=== PATIENT | female | born 1965 | race Hispanic/Latino ===

== ENCOUNTER 2016-05-28 22:47 | Inpatient (IN) | payer MEDICAID ==
--- NOTE | 2016-05-28 23:28 | Emergency Department Report ---
Chief Complaint: Chest Pain Stated Complaint: CHEST PAIN Time Seen by Provider: 05/28/16 23:23 - HPI History of Present Illness: Patient states she started to feel palpitations 1 hour ago and then started to have some left chest tightness and it lasted for a few minutes and resolved; denies SOB, fevers and cough; took an 81mg ASA before she came here - ROS Review of Systems: Negative except for those states in HPI - Exam Vital Signs: Vital Signs 05/28/16 22:57 Temperature 98.1 F Pulse Rate 104 H Respiratory 18 Rate Blood Pressure 124/88 O2 Sat by Pulse 95 Oximetry Physical Exam: Heart - RRR Lungs - Mild bilateral wheezes present MSE screening note: Focused history and physical exam performed. Due to findings the following was ordered: Labs, EKG, CXR, patient to be seen in Main ED ED Disposition for MSE Condition: Stable
[2016-05-28] MEDS ORDERED: PROVENTIL IH ONE (23:30)
[2016-05-28] MEDS ORDERED: ATROVENT IH ONE (23:30)
[2016-05-29 00:18] LABS: Eosinophils % (Auto) 0.5 % (0.0-4.3); Hematocrit 40.5 % (30.3-42.9); Hemoglobin 13.7 gm/dl (10.1-14.3); Mean Corpuscular HGB Conc 34 % (30-34); Mean Corpuscular Hemoglobin 30 pg (28-32); Mean Corpuscular Volume 89 fl (79-97); Platelet Count 311 K/mm3 (140-440); Red Blood Count 4.53 M/mm3 (3.65-5.03); White Blood Count 11.7 K/mm3 (4.5-11.0)
[2016-05-29 00:36] LABS: Blood Urea Nitrogen 14 mg/dL (7-17); Calcium 9.5 mg/dL (8.4-10.2); Carbon Dioxide 25 mmol/L (22-30); Chloride 99.2 mmol/L (98-107); Glucose 137 mg/dL (65-100); Potassium 3.5 mmol/L (3.6-5.0); Sodium 141 mmol/L (137-145)
[2016-05-29 00:39] LABS: Anion Gap 20 mmol/L
[2016-05-29] MEDS ORDERED: ATROVENT IH ONE (03:38)
[2016-05-29] MEDS ORDERED: PROVENTIL IH ONE (03:38)
--- NOTE | 2016-05-29 07:18 | XRay Report ---
ROUTINE CHEST, TWO VIEWS: HISTORY: chest pain. The trachea, heart, mediastinal contour, lung childs and bony thorax are unremarkable. IMPRESSION: Unremarkable chest x-ray.
[2016-05-29] MEDS ORDERED: ZOFRAN IV ONE (10:27)
[2016-05-29] MEDS ORDERED: ASPIRIN PO ONE (10:27)
[2016-05-29] MEDS ORDERED: NITRO-BID 2% TP ONE (10:27)
[2016-05-29] MEDS ORDERED: MORPHINE IV ONE (10:27)
--- NOTE | 2016-05-29 10:33 | Emergency Department Report ---
HPI - General Chief Complaint: Chest Pain Time Seen by Provider: 05/29/16 10:20 - HPI HPI: Pat 26 The patient is a 50-year-old female presenting with a chief complaint of chest pain. The patient states last night at approximately 20:00 she developed L dictations then soreness in the left chest. Patient states the soreness is changed to a tightness and is currently a 4-5/10. The patient denies shortness of breath, nausea/vomiting or diaphoresis with the chest tightness. The patient states she was diagnosed with coronary artery disease but she has never received a cardiac catheterization or stress test. The patient's father from coronary artery disease Location: Left chest Duration: [see above] Quality: Tightness Severity: 4-5/10 Modifying factors: [see above] Context: [see above] Mode of transportation: [not driving] ED Past Medical Hx - Past Medical History Previous Medical History?: Yes Hx Hypertension: Yes Hx Psychiatric Treatment: Yes (depression PTSD anxiety) Additional medical history: CAD - Surgical History Past Surgical History?: Yes Additional Surgical History: hyster - Family History Family history: CAD/VT - Social History Smoking Status: Current Every Day Smoker (1/2.5 pack per day) Substance Use Type: None (denies illicit drug) ED Review of Systems ROS: Stated complaint: CHEST PAIN Other details as noted in HPI Comment: All other systems reviewed and negative Constitutional: denies: chills, fever Eyes: denies: eye pain, eye discharge, vision change ENT: denies: ear pain, throat pain Respiratory: denies: cough, shortness of breath, wheezing Cardiovascular: chest pain, palpitations Endocrine: no symptoms reported Gastrointestinal: as per HPI Genitourinary: denies: urgency, dysuria, discharge Musculoskeletal: denies: back pain, joint swelling, arthralgia Skin: denies: rash, lesions Neurological: denies: headache, weakness, paresthesias Psychiatric: denies: anxiety, depression Hematological/Lymphatic: denies: easy bleeding, easy bruising Physical Exam - Physical Exam Vital Signs: Vital Signs 05/28/16 05/29/16 05/29/16 22:57 03:47 04:27 Temperature 98.1 F Pulse Rate 104 H Pulse Rate [ 72 75 Throughout] Respiratory 18 Rate Respiratory 20 20 Rate [ Throughout] Blood Pressure 124/88 O2 Sat by Pulse 95 Oximetry Physical Exam: GENERAL: The patient is well-developed well-nourished female lying on stretcher not appearing to be in acute distress. [] HEENT: Normocephalic. Atraumatic. Extraocular motions are intact. Patient has moist mucous membranes. NECK: Supple. Trachea midline CHEST/LUNGS: Clear to auscultation. There is no respiratory distress noted. HEART/CARDIOVASCULAR: Regular. There is no tachycardia. There is no gallop rub or murmur. ABDOMEN: Abdomen is soft, nontender. Patient has normal bowel sounds. There is no abdominal distention. SKIN: There is no rash. There is no edema. There is no diaphoresis. NEURO: The patient is awake, alert, and oriented. The patient is cooperative. The patient has normal speech MUSCULOSKELETAL: There is no evidence of acute injury. ED Course Vital Signs 05/28/16 05/29/16 05/29/16 22:57 03:47 04:27 Temperature 98.1 F Pulse Rate 104 H Pulse Rate [ 72 75 Throughout] Respiratory 18 Rate Respiratory 20 20 Rate [ Throughout] Blood Pressure 124/88 O2 Sat by Pulse 95 Oximetry ED Medical Decision Making - Lab Data Result diagrams: 05/29/16 00:04 05/29/16 00:04 Laboratory Tests 05/29/16 05/29/16 05/29/16 00:04 00:04 02:24 WBC 11.7 H RBC 4.53 Hgb 13.7 Hct 40.5 MCV 89 MCH 30 MCHC 34 RDW 13.0 L Plt Count 311 Lymph % (Auto) 30.0 [place] % (Auto) 7.3 Eos % (Auto) 0.5 Baso % (Auto) 1.0 Lymph # 3.5 [place] # 0.9 H Eos # 0.1 Baso # 0.1 Seg Neutrophils % 61.2 Seg Neutrophils # 7.1 Sodium 141 Potassium 3.5 L Chloride 99.2 Carbon Dioxide 25 Anion Gap 20 BUN 14 Creatinine 0.7 Estimated GFR > 60 BUN/Creatinine Ratio 20.00 Glucose 137 H Calcium 9.5 Troponin T < 0.010 < 0.010 05/29/16 06:50 WBC RBC Hgb Hct MCV MCH MCHC RDW Plt Count Lymph % (Auto) [place] % (Auto) Eos % (Auto) Baso % (Auto) Lymph # [place] # Eos # Baso # Seg Neutrophils % Seg Neutrophils # Sodium Potassium Chloride Carbon Dioxide Anion Gap BUN Creatinine Estimated GFR BUN/Creatinine Ratio Glucose Calcium Troponin T < 0.010 - EKG Data -: EKG Interpreted by Me EKG shows normal: sinus rhythm Rate: normal - EKG Data When compared to previous EKG there are: previous EKG unavailable Interpretation: other (no ischemic changes seen) - Radiology Data Radiology results: image reviewed (chest x-ray) interpreted by me: Chest x-ray-no focal infiltrates, no pneumothorax - Differential Diagnosis ACS, GERD, pericarditis Critical care attestation.: If time is entered above; I have spent that time in minutes in the direct care of this critically ill patient, excluding procedure time. ED Disposition Clinical Impression: Chest pain Disposition: OP ADMITTED IP TO THIS HOSP Is pt being admited?: Yes Does the pt Need Aspirin: Yes Condition: Fair Instructions: Chest Pain (ED) Time of Disposition: 10:35 (hospitalist notified)
[2016-05-29] MEDS ORDERED: MORPHINE IV PRN (10:39)
[2016-05-29] MEDS ORDERED: NITROSTAT SL PRN (10:39)
[2016-05-29] MEDS ORDERED: SODIUM CHLORIDE FLUSH SYRINGE 10 ML IV PRN (10:39)
[2016-05-29] MEDS ORDERED: DULCOLAX PR PRN (10:40)
[2016-05-29] MEDS ORDERED: MILK OF MAGNESIA PO PRN (10:40)
[2016-05-29] MEDS ORDERED: ZOFRAN IV PRN (10:40)
[2016-05-29] MEDS ORDERED: TYLENOL PO PRN (10:40)
--- NOTE | 2016-05-29 10:55 | Admit Criteria Form ---
Admission Criteria Documentation: CHEST PAIN Clinical Indications for Admission to Inpatient Care (Place 'X' for any and all applicable criteria): Admission is indicated for chest pain and ANY ONE of the following(1)(2)(3)(4)(5 ): [ ]I. Angina with acute coronary syndrome (Also use Myocardial Infarction or Angina guideline) [ ]II. Hemodynamic instability [X]III. Angina needing acute intervention as indicated by ALL of the following( 11)(12): [X]a) Unstable angina is present as indicated by angina that is ANY ONE of the following: [ ]i) New onset [X]ii) Nocturnal [ ]iii) Prolonged at rest [ ]iv) Progressive []b) Angina warrants acute intervention as indicated by ANY ONE of the following: [ ]i) Recurrent angina (e.g, not responding as previously to treatment) [ ]ii) Angina at rest or with low-level activities despite initial medical therapy [ ]iii) New or presumably new ST-segment depression on ECG [ ]iv) Signs or symptoms of heart failure (eg, dyspnea, pulmonary edema) [ ]v) New or worsening mitral regurgitation [ ]vi) Hemodynamic instability [ ]vii) Dangerous arrhythmia (eg, sustained ventricular tachycardia) [ ]viii) History of percutaneous coronary intervention within 6 months [ ]ix) History of coronary artery bypass graft surgery [ ]x) ANITRA risk score of 2 or greater[A] [ ]xi) History of Diabetes(14) [ ]xii) High-risk cardiac ischemia findings on noninvasive testing (e.g, echocardiogram, treadmill testing, nuclear scan) [ ]xiii) Chronic renal insufficiency (ie, estimated GFR less than 60 mL/min/1.732m) [ ]xiv) Left ventricular ejection fraction less than 40% [ ]IV. Evidence of NV (eg, cardiac biomarkers positive, ST-segment elevation on ECG) also use Myocardial Infarction Criteria Form. [ ]V. Pulmonary edema [ ]. Respiratory distress [ ]VII. Chest pain indicative of serious diagnosis other than coronary artery disease (eg, aortic dissection) [ ]VIII. Contraindications and/or Inappropriate clinical situations for Observational Care in patients with Chest Pain, when ANY ONE of the following is required: [ ]a) Patient with risk factor for pulmonary embolism, acute coronary syndrome and myocardial infarction (18) [ ]b) Patient with Pulmonary embolism require an average LOS of 4.3 days, therefore emergency department observation management is inappropriate 18,23 [ ]c) Painful condition/s in the elderly, have the highest rate of recidivism after emergency department observation management (10.8%) 20,21,22 [ ]d) Elevated cardiac biomarker requires intensive and exhaustive care (19) [ ]IX. General contraindications and/or Inappropriate clinical situations for Observational Care in patients with Chest Pain, when ANY ONE of the following is required: [ ]a) Prediction of prolongation of LOS based on ANY ONE of the following may be considered as a contraindication for observational care 2, 3, 4, 5, 6, 7, 8, 9, 10, 11 [ ]i) Age > 65 yrs. [ ]ii) Patient arriving by ambulance [ ]iii) Patient with high acuity [ ]iv) Patient requiring vital sign monitoring [ ]v) Patient on IV medication [ ]b) Systolic blood pressures 180mmHg 3,12 [ ]c) Patient with altered mental status including delirium and other alteration of consciousness, (3) [ ]d) Patient whose discharge disposition will be to a custodial home or rehabilitation home should not be managed in Emergency Department Observation Unit. CMS rule requires 3 days hospital stay before such placement. 3,13 [ ]e) Patient with failure to thrive due to broad array of etiologies 3,16,17 [ ]f) Inability to ambulate 3,14 Extended stay beyond goal length of stay may be needed for (1)(28): [ ]a) Specific condition diagnosed after evaluation (eg, pulmonary embolism, aortic dissection) [ ]b) Unstable angina [ ]c) Continued suspicion of acute coronary syndrome with inability to complete needed cardiac evaluation (eg, patient clinically unable to undergo stress testing) [ ]d) Myocardial infarction (Contents from ANGINA and CHEST PAIN clinical indications for admission to inpatient care have been integrated in this form) The original [facility] content created by [employer] has been revised. The portions of the content which have been revised are identified through the use of italic text or in bold, and [facility] [employer] has neither reviewed nor approved the modified material. All other unmodified content is copyright [facility]. Please see references footnoted in the original [facility] edition 2016 Admission Criteria Met: Yes
[2016-05-29] MEDS ORDERED: LEXISCAN IV ONE ×2 (11:49→11:52)
[2016-05-29 11:52] LABS: Creatine Kinase 137 units/L (30-135); Creatine Kinase MB 3.5 ng/mL (0.0-4.0)
[2016-05-29] MEDS ORDERED: ZITHROMAX PO SCH (13:26)
--- NOTE | 2016-05-29 13:46 | History and Physical Report ---
History of Present Illness Date of examination: 05/29/16 Date of admission: 05/29/16 10:40 Chief complaint: Chest pain History of present illness: Patient is a 50-year-old female who presented to the ER with complaint of chest discomfort. She states that he started late yesterday around 8 PM with cough initially then proceeded to have tightness of the left lateral aspect of her chest radiating to her axillary area. She rates it a 4/10 in intensity with no aggravating or alleviating factors. Of note she is a smoker. She is a resident of [facility]. She states that she is having some chronic cough also and feels that sometimes the cough may have made it worse although she does not endorse that all the time. She reports that she was told she has coronary artery disease about a year ago but has not had any stress test or cardiac catheterization. She states she's had multiple admissions to the hospital for abdominal pain one of them related to an ulcer but does not endorse to any endoscopy in the past. ROS Constitutional: No fever, fatigue or weight loss. Skin: No rash. Eyes: No recent vision problems or eye pain. ENT: No congestion, ear pain, or sore throat. Endocrine: No thyroid problems. Cardiovascular: Chest pain. Respiratory: Nonproductive cough but no associated shortness of breath, congestion, or wheezing. Gastrointestinal: No abdominal pain, nausea, vomiting, or diarrhea. Genitourinary: No dysuria. Musculoskeletal: No joint swelling. Neurologic: No seizures. Hematologic: No unusual bruising or bleeding. Psychiatric: No psychiatric problems, hallucinations or depression. All other systems reviewed and otherwise negative. Past History Past Medical History: other (depression, anxiety, PTSD, peptic ulcer disease) Past Surgical History: denies: No surgical history Social history: smoking, full code. denies: alcohol abuse, prescription drug abuse, IV drug use Family history: CAD (father of an [place]) Medications and Allergies Allergies Allergy/AdvReac Type Severity Reaction Status Date / Time Penicillins Allergy Hives Verified 05/28/16 23:03 Home Medications Medication Instructions Recorded Confirmed Last Taken Type ALBUTEROL Inhaler [Proair] 2 puff IH QID PRN 05/29/16 05/29/16 1 Day Ago History ARIPiprazole [Abilify TAB] 5 mg PO DAILY 05/29/16 05/29/16 1 Day Ago History Bupropion HCl [Wellbutrin XL] 300 mg PO QAM 05/29/16 05/29/16 1 Day Ago History FLUoxetine HCL [PROzac] 40 mg PO QDAY 05/29/16 05/29/16 1 Day Ago History Gabapentin [Neurontin] 300 mg PO Q8HR 05/29/16 05/29/16 1 Day Ago History Naproxen [Naprosyn] 500 mg PO BID PRN 05/29/16 05/29/16 1 Day Ago History Ondansetron [Zofran TAB] 4 mg PO BID PRN 05/29/16 05/29/16 1 Day Ago History Pantoprazole [Protonix] 80 mg PO QDAY 05/29/16 05/29/16 1 Day Ago History cloNIDine [Catapres] 0.1 mg PO BID 05/29/16 05/29/16 1 Day Ago History hydrOXYzine PAMOATE [Vistaril] 50 mg PO Q6HR 05/29/16 05/29/16 1 Day Ago History traZODone [Desyrel] 300 mg PO QHS 05/29/16 05/29/16 1 Day Ago History Active Meds: Active Medications Acetaminophen (Tylenol) 650 mg PO Q4H PRN PRN Reason: Pain MILD(1-3)/Fever >100.5/LOWERY Albuterol/Ipratropium (Duoneb 0.5 Mg-3 Mg/3 Ml Soln) 1 ampul IH Q6HRT [facility] Arformoterol Tartrate (Brovana Nebu) 15 mcg IH Q12HRT [facility] Aspirin (Baby Aspirin) 81 mg PO QDAY [facility] Azithromycin (Zithromax) 500 mg PO QDAY [facility] Bisacodyl (Dulcolax) 10 mg IA QDAY PRN PRN Reason: Constipation unrelieved by MOM Budesonide (Pulmicort) 0.5 mg IH Q12HRT [facility] Magnesium Hydroxide (Milk Of Magnesia) 30 ml PO Q4H PRN PRN Reason: Constipation Morphine Sulfate (Morphine) 2 mg IV Q5MIN PRN PRN Reason: Chest Pain Nitroglycerin (Nitrostat) 0.4 mg SL Q5M PRN PRN Reason: Chest Pain Ondansetron HCl (Zofran) 4 mg IV Q8H PRN PRN Reason: N/V unrelieved by Reglan Sodium Chloride (Sodium Chloride Flush Syringe 10 Ml) 10 ml IV PRN PRN PRN Reason: LINE FLUSH Exam - Physical Exam Narrative exam: VITAL SIGNS: Reviewed. GENERAL: The patient appeared well nourished and normally developed. Vital signs as documented. HEAD: No signs of head trauma. EYES: Pupils are equal. Extraocular motions intact. EARS: Hearing grossly intact. MOUTH: Oropharynx is normal. NECK: No adenopathy, no JVD. CHEST: Chest with crackles breath sounds at the bases bilaterally. No wheezes , rales, or rhonchi. CARDIAC: Regular rate and rhythm. S1 and S2, without murmurs, gallops, or rubs. VASCULAR: No Edema. Peripheral pulses normal and equal in all extremities. ABDOMEN: Soft, without detectable tenderness. No sign of distention. No rebound or guarding, and no masses palpated. Bowel Sounds normal. MUSCULOSKELETAL: Good range of motion of all major joints. Extremities without clubbing, cyanosis or edema. NEUROLOGIC EXAM: Alert and oriented x 3. No focal sensory or strength deficits. Speech normal. Follows commands. PSYCHIATRIC: Mood normal. SKIN: No rash or lesions. - Constitutional Vitals: Temp Pulse Resp BP Pulse Ox 98.2 F 90 16 152/94 96 05/29/16 11:28 05/29/16 11:28 05/29/16 11:28 05/29/16 11:28 05/29/16 11:28 Results - Labs CBC & Chem 7: 05/29/16 00:04 05/29/16 00:04 Labs: Laboratory Last Values WBC 11.7 K/mm3 (4.5-11.0) H 05/29/16 00:04 RBC 4.53 M/mm3 (3.65-5.03) 05/29/16 00:04 Hgb 13.7 gm/dl (10.1-14.3) 05/29/16 00:04 Hct 40.5 % (30.3-42.9) 05/29/16 00:04 MCV 89 fl (79-97) 05/29/16 00:04 MCH 30 pg (28-32) 05/29/16 00:04 MCHC 34 % (30-34) 05/29/16 00:04 RDW 13.0 % (13.2-15.2) L 05/29/16 00:04 Plt Count 311 K/mm3 (140-440) 05/29/16 00:04 Lymph % (Auto) 30.0 % (13.4-35.0) 05/29/16 00:04 [place] % (Auto) 7.3 % (0.0-7.3) 05/29/16 00:04 Eos % (Auto) 0.5 % (0.0-4.3) 05/29/16 00:04 Baso % (Auto) 1.0 % (0.0-1.8) 05/29/16 00:04 Lymph # 3.5 K/mm3 (1.2-5.4) 05/29/16 00:04 [place] # 0.9 K/mm3 (0.0-0.8) H 05/29/16 00:04 Eos # 0.1 K/mm3 (0.0-0.4) 05/29/16 00:04 Baso # 0.1 K/mm3 (0.0-0.1) 05/29/16 00:04 Seg Neutrophils % 61.2 % (40.0-70.0) 05/29/16 00:04 Seg Neutrophils # 7.1 K/mm3 (1.8-7.7) 05/29/16 00:04 Sodium 141 mmol/L (137-145) 05/29/16 00:04 Potassium 3.5 mmol/L (3.6-5.0) L 05/29/16 00:04 Chloride 99.2 mmol/L (98-107) 05/29/16 00:04 Carbon Dioxide 25 mmol/L (22-30) 05/29/16 00:04 Anion Gap 20 mmol/L 05/29/16 00:04 BUN 14 mg/dL (7-17) 05/29/16 00:04 Creatinine 0.7 mg/dL (0.7-1.2) 05/29/16 00:04 Estimated GFR > 60 ml/min 05/29/16 00:04 BUN/Creatinine Ratio 20.00 % 05/29/16 00:04 Glucose 137 mg/dL (65-100) H 05/29/16 00:04 Calcium 9.5 mg/dL (8.4-10.2) 05/29/16 00:04 Total Creatine Kinase 137 units/L (30-135) H 05/29/16 11:19 CK-MB (CK-2) 3.5 ng/mL (0.0-4.0) 05/29/16 11:19 CK-MB (CK-2) Rel Index 2.5 (0-4) 05/29/16 11:19 Troponin T < 0.010 ng/mL (0.00-0.029) 05/29/16 11:19 Triglycerides 208 mg/dL (2-149) H 05/29/16 06:50 Cholesterol 271 mg/dL (50-199) H 05/29/16 06:50 LDL Cholesterol Direct 171 mg/dL (50-130) H 05/29/16 06:50 HDL Cholesterol 59 mg/dL (40-59) 05/29/16 06:50 Cholesterol/HDL Ratio 4.59 % 05/29/16 06:50 - Imaging and Cardiology EKG: image reviewed (normal sinus rhythm) Chest x-ray: image reviewed (no acute pathology noted) Assessment and Plan Assessment and plan: Patient is a 50-year-old female who presented to the ER with complaint of chest discomfort. She states that he started late yesterday around 8 PM with cough initially then proceeded to have tightness of the left lateral aspect of her chest radiating to her axillary area. She rates it a 4/10 in intensity with no aggravating or alleviating factors. Of note she is a smoker. She is a resident of [facility]. She states that she is having some chronic cough also and feels that sometimes the cough may have made it worse although she does not endorse that all the time. She reports that she was told she has coronary artery disease about a year ago but has not had any stress test or cardiac catheterization. She states she's had multiple admissions to the hospital for abdominal pain one of them related to an ulcer but does not endorse to any endoscopy in the past. * Atypical chest pain likely secondary to bronchitis * Bronchitis * Leukocytosis with no evidence of sepsis * Tobacco abuse * Depression * Hypokalemia * Anxiety * PTSD Plan * We'll start patient on ACS protocol, aspirin, statins, oxygen, morphine when necessary * Stress test today * Restart home medications hold trazodone as patient states it causes palpitation * DVT and GI prophylaxis * Educated the patient the need to quit tobacco use patient verbalized understanding 15 minutes spent, also provided since the patient * I have started Patient on azithromycin for acute bronchitis * If stress test is negative patient safely discharged Advance Directives: Yes Plan of care discussed with patient/family: Yes
[2016-05-29] MEDS ORDERED: DUONEB 0.5 MG-3 MG/3 ML SOLN IH SCH (14:00)
[2016-05-29 14:23] LABS: Creatine Kinase MB 3.2 ng/mL (0.0-4.0)
[2016-05-29 14:24] LABS: Creatine Kinase 126 units/L (30-135)
[2016-05-29 16:03] VITALS: BP 143/61
--- NOTE | 2016-05-29 16:37 | Discharge Summary ---
Providers - Providers Date of Admission: 05/29/16 10:40 Date of discharge: 05/29/16 Attending physician: ARMANDO BENJAMIN MD Hospitalization Reason for admission: shortness of breath Condition: Stable Hospital course: Patient is a 50-year-old female with history of tobacco abuse, anxiety, PTSD who presented to the ER with complaint of chest pain. Which was worse by cough. She proceeded to have a stress test that was unremarkable. It was felt that this chest was likely secondary to acute bronchitis for which the patient was appropriately treated with antibiotics. And is stable at this point for discharge. Of consult was provided to the patient the need to quit tobacco use patient verbalized understanding Discharge diagnoses Atypical chest pain likely secondary to bronchitis Acute bronchitis Leukocytosis likely secondary to above Tobacco abuse with cessation counseling Depression Hypokalemia Anxiety PTSD Disposition: DISCHARGED TO HOME OR SELFCARE Time spent for discharge: 35 mins Core Measure Documentation - Palliative Care Palliative Care/ Comfort Measures: Not Applicable - Core Measures Any of the following diagnoses?: none - VTE Discharge Requirements Deep Vein Thrombosis/Pulmonary Embolism Present on Admission: No Exam - Physical Exam Narrative exam: VITAL SIGNS: Reviewed. GENERAL: The patient appeared well nourished and normally developed. Vital signs as documented. HEAD: No signs of head trauma. EYES: Pupils are equal. Extraocular motions intact. EARS: Hearing grossly intact. MOUTH: Oropharynx is normal. NECK: No adenopathy, no JVD. CHEST: Chest with crackles breath sounds at the bases bilaterally. No wheezes , rales, or rhonchi. CARDIAC: Regular rate and rhythm. S1 and S2, without murmurs, gallops, or rubs. VASCULAR: No Edema. Peripheral pulses normal and equal in all extremities. ABDOMEN: Soft, without detectable tenderness. No sign of distention. No rebound or guarding, and no masses palpated. Bowel Sounds normal. MUSCULOSKELETAL: Good range of motion of all major joints. Extremities without clubbing, cyanosis or edema. NEUROLOGIC EXAM: Alert and oriented x 3. No focal sensory or strength deficits. Speech normal. Follows commands. PSYCHIATRIC: Mood normal. SKIN: No rash or lesions. - Constitutional Vitals: Temp Pulse Resp BP Pulse Ox 98.0 F 81 20 143/61 97 05/29/16 16:02 05/29/16 16:02 05/29/16 16:02 05/29/16 16:02 05/29/16 16:02 Plan Activity: advance as tolerated, fall precautions Diet: diabetic Follow up with: DR SOUTH [Other] - 3-5 Days
[2016-05-29] MEDS ORDERED: PULMICORT IH SCH (20:00)
[2016-05-29] MEDS ORDERED: BROVANA NEBU IH SCH (20:00)
--- NOTE | 2016-05-30 01:14 | Treadmill Report ---
NUCLEAR CARDIAC IMAGING REPORT INDICATION FOR PROCEDURE: Chest pain. Informed consent was obtained. DESCRIPTION OF PROCEDURE: Resting nuclear cardiac images were performed 45 to 60 minutes following the intravenous administration of 10 mCi of technetium 99m Myoview. Vasodilator stress was achieved following with the intravenous administration of 0.4 mg of Lexiscan per protocol. Stress myocardial perfusion imaging was performed 30 to 45 minutes following the intravenous administration of 28 mCi of technetium 99m Myoview. Images were obtained in a 180-degree arc from 45 degrees LAGOS to 45 degrees LPO. After data acquisition and reconstruction, the images were processed and reoriented into the vertical long, horizontal long, and horizontal short axis slices. A polar color map of the horizontal short axis slices was generated and reviewed. The rotating planar images reviewed in cinematic format on the computer console. Gated SPECT imaging demonstrates a left ventricular ejection fraction of 70%. Left ventricular segmental wall motion is normal. Myocardial perfusion imaging demonstrates no significant cavity change between stress and rest. No significant stress induced perfusion defects are seen. Nuclear cardiac imaging demonstrates grossly normal left ventricular systolic function with no significant evidence for myocardial ischemia or necrosis. JOB# [id number] WALTER/COLEMAN
[2016-05-30] MEDS ORDERED: BABY ASPIRIN PO SCH (10:00)
== END 2016-05-29 16:56 | disposition home or self-care (01) | DRG 203 ==
LOC: ED 22:47 → 3A 05-29 10:40
PROVIDERS: ADMIT Internal Medicine; ATTEND Internal Medicine
DX: J40 Bronchitis, not specified as acute or chronic (principal); F43.10 Post-traumatic stress disorder, unspecified; F32.9 Major depressive disorder, single episode, unspecified; F41.9 Anxiety disorder, unspecified; I25.10 Atherosclerotic heart disease of native coronary artery without angina pectoris; I10 Essential (primary) hypertension; F17.200 Nicotine dependence, unspecified, uncomplicated; D72.829 Elevated white blood cell count, unspecified; E87.6 Hypokalemia; Z90.710 Acquired absence of both cervix and uterus; Z82.49 Family history of ischemic heart disease and other diseases of the circulatory system; Z87.11 Personal history of peptic ulcer disease; Z88.0 Allergy status to penicillin
CPT/HCPCS: 36415; 71020; 78452; 80048; 80061; 82550; 82553; 84484; 85025; 93005; 93010; 93017; 94640; A9502; J2270; J2405; J2785